=== PATIENT | female | born 1995 | race Caucasian/White ===

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

== ENCOUNTER 2017-05-19 08:00 | Inpatient (IN) | payer OTHER ==
[2017-05-19] MEDS: LACTATED RINGER'S 1000 ML IV (08:52)
[2017-05-19] MEDS: PRENATAL VITAMINS CHEWABLE TABLET PO (09:00)
[2017-05-19 09:20] LABS: HEMATOCRIT 35.5 % (36.0-47.0); HEMOGLOBIN 11.8 g/dl (12.0-16.0); MEAN CORPUSCULAR HEMOGLOBIN 29.4 pg (27.0-33.0); MEAN CORPUSCULAR HGB CONC 33.2 g/dl (32.0-36.5); MEAN CORPUSCULAR VOLUME 88.5 fl (80.0-96.0); PLATELET COUNT, AUTOMATED 308 10^3/uL (150-450); RED BLOOD COUNT 4.01 10^6/uL (4.00-5.40); RED CELL DISTRIBUTION WIDTH 11.7 % (11.5-14.5); WHITE BLOOD COUNT 8.7 10^3/uL (4.0-10.0)
[2017-05-19] MEDS: LR 1,000 ML IV ×2 (10:50→19:23)
[2017-05-19] MEDS: BICITRA 30ML SOLN UDC PO (10:55)
[2017-05-19] MEDS ORDERED: fentaNYL 100 MCG/2 ML INJECTION (J3010) As Ordered (11:05)
[2017-05-19] MEDS ORDERED: ONDANSETRON 4MG/2ML VIAL (J2405) As Ordered (11:06)
[2017-05-19] MEDS ORDERED: dexameTHASONE 4 MG/ML 1ML VIAL (J1100) As Ordered (11:06)
[2017-05-19] MEDS ORDERED: OXYTOCIN INJ 10 UNITS/ML VIAL (J2590) As Ordered (11:06)
[2017-05-19] MEDS ORDERED: NALOXONE INJ 0.4 MG/1 ML VIAL (J2310) IV ×2 (11:30)
[2017-05-19] MEDS ORDERED: ONDANSETRON 4MG/2ML VIAL (J2405) IV ×3 (11:30→13:00)
[2017-05-19] MEDS ORDERED: NALBUPHINE HCL 10 MG/ML AMP (J2300) IV (11:30)
[2017-05-19] MEDS ORDERED: KETOROLAC 60 MG/2 ML VIAL (J1885) As Ordered (12:10)
[2017-05-19] MEDS ORDERED: LR 1,000 ML IV (12:34)
[2017-05-19] MEDS ORDERED: PROMETHAZINE 25 MG TAB PO (12:45)
[2017-05-19] MEDS ORDERED: DOCUSATE SODIUM 100 MG CAP PO (12:45)
[2017-05-19] MEDS ORDERED: PERCOCET 5MG/325MG TAB PO ×2 (12:45→13:00)
[2017-05-19] MEDS ORDERED: MOM 30ML SUSPENSION UDC PO (12:45)
[2017-05-19] MEDS ORDERED: METHYLERGONOVINE MALEATE 0.2 MG TAB PO (12:45)
[2017-05-19] MEDS ORDERED: fentaNYL 100 MCG/2 ML INJECTION (J3010) IV (13:00)
[2017-05-19] MEDS ORDERED: METOCLOPRAMIDE INJ 10MG/2ML VIAL (J2765) IV (13:00)
[2017-05-19] MEDS ORDERED: MEPERIDINE INJ 25 MG/ML VIAL (J2175) IV (13:00)
[2017-05-19] MEDS: KETOROLAC 30 MG/ML VIAL (J1885) IV (18:05)
[2017-05-19] MEDS: RHOGAM 300 MCG (1500 IU) INJ (J2790) IM (19:23)
[2017-05-19] MEDS: MEASLES,MUMPS,RUBELLA VACCINE INJ (MMR-II) (90707) SC (19:24)
[2017-05-19] MEDS: METOCLOPRAMIDE INJ 10MG/2ML VIAL (J2765) IV (20:29)
[2017-05-20] MEDS: KETOROLAC 30 MG/ML VIAL (J1885) IV ×2 (01:00→06:01)
[2017-05-20 07:33] LABS: MEAN CORPUSCULAR HGB CONC 33.3 g/dl (32.0-36.5); MEAN CORPUSCULAR VOLUME 90.1 fl (80.0-96.0); PLATELET COUNT, AUTOMATED 247 10^3/uL (150-450); RED BLOOD COUNT 3.33 10^6/uL (4.00-5.40); RED CELL DISTRIBUTION WIDTH 11.6 % (11.5-14.5); WHITE BLOOD COUNT 13.4 10^3/uL (4.0-10.0)
[2017-05-20] MEDS: PRENATAL VITAMINS CHEWABLE TABLET PO (09:51)
[2017-05-20] MEDS: IBUPROFEN 800 MG TAB PO ×2 (13:41→21:19)
[2017-05-20] MEDS: PERCOCET 5MG/325MG TAB PO (13:41)
[2017-05-21] MEDS: PERCOCET 5MG/325MG TAB PO (00:10)
[2017-05-21] MEDS: IBUPROFEN 800 MG TAB PO (05:27)
[2017-05-21] MEDS: PRENATAL VITAMINS CHEWABLE TABLET PO (08:38)
== END 2017-05-21 11:30 | disposition home or self-care (01) | DRG 766 ==
LOC: M LDI 08:00 → M OBS 14:30
PROVIDERS: Student in an Organized Health Care Education/Training Program
PROC: 10D00Z1 Extraction of Products of Conception, Low, Open Approach (ICD-10-PCS; principal; 2017-05-19 10:30)
DX: O82 Encounter for cesarean delivery without indication (principal); Z37.0 Single live birth; Z3A.39 39 weeks gestation of pregnancy

== ENCOUNTER 2017-07-15 18:59 | Emergency (ER) | payer OTHER ==
[2017-07-15] MEDS: predniSONE 20 MG TAB PO (20:00)
== END 2017-07-15 20:11 | disposition home or self-care (01) ==
LOC: M ED 18:59
DX: L23.2 Allergic contact dermatitis due to cosmetics (principal); Z91.018 Allergy to other foods
CPT/HCPCS: 99283

== ENCOUNTER → 2017-12-17 | Outpatient (REF) | payer OTHER ==
[2017-12-17 19:05] LABS: BASO # 0.1 10^3/uL (0.0-0.2); BASO % 0.9 % (0.0-1.0); EOS # 0.8 10^3/uL (0.0-0.50); HEMATOCRIT 43.2 % (36.0-47.0); HEMOGLOBIN 14.5 g/dl (12.0-15.5); IMMATURE GRANULOCYTE % 0.1 % (0-3.0); LYMPH % 29.3 % (24.0-44.0); MEAN CORPUSCULAR HEMOGLOBIN 29.5 pg (27.0-33.0); MEAN CORPUSCULAR HGB CONC 33.6 g/dl (32.0-36.5); MEAN CORPUSCULAR VOLUME 87.8 fl (80.0-96.0); MONO # 0.4 10^3/uL (0.0-0.8); MONO % 5.2 % (0.0-5.0); NEUTROPHILS # 3.6 10^3/uL (1.8-7.7); NEUTROPHILS % 52.5 % (36.0-66.0); PLATELET COUNT, AUTOMATED 382 10^3/uL (150-450); RED BLOOD COUNT 4.92 10^6/uL (4.00-5.40); RED CELL DISTRIBUTION WIDTH 11.7 % (11.5-14.5); WHITE BLOOD COUNT 6.9 10^3/uL (4.0-10.0)
[2017-12-17 19:34] LABS: IMMUNOGLOBULIN E 42.9 IU/ML (<100)
[2017-12-21 01:40] LABS: D001-IgE D pteronyssinus 0.56 kU/L (Class II); E001-IgE Cat Epith/Dander < 0.10 kU/L (Class 0); E005-IgE Dog Dander < 0.10 kU/L (Class 0); G002-IgE Bermuda Grass < 0.10 kU/L (Class 0); G008-IgE Kentucky Bluegrass < 0.10 kU/L (Class 0); M001-IgE Penicillium chrysogen < 0.10 kU/L (Class 0); M002 IgE Cladosporium herbaru < 0.10 kU/L (Class 0); M003 IgE Aspergillus fumigatu < 0.10 kU/L (Class 0); M006-IgE Alternaria alternata 0.11 kU/L (Class 0/I); T001-IgE Maple/Box Elder < 0.10 kU/L (Class 0); T003-IgE Common Silver Birch < 0.10 kU/L (Class 0); T006-IgE Cedar, Mountain < 0.10 kU/L (Class 0); T007-IgE Oak, White < 0.10 kU/L (Class 0); T008-IgE Elm, American < 0.10 kU/L (Class 0); T015-IgE Ash, White < 0.10 kU/L (Class 0); T041-IgE Hickory, White < 0.10 kU/L (Class 0); T070-IgE White Mulberry < 0.10 kU/L (Class 0); W001-IgE Ragweed, Short < 0.10 kU/L (Class 0); W014-IgE Pigweed, Rough < 0.10 kU/L (Class 0); W018-IgE Sheep Sorrel 0.12 kU/L (Class 0/I)
== END ==
LOC: M LAB REF 17:24
DX: J45.41 Moderate persistent asthma with (acute) exacerbation (principal)
CPT/HCPCS: 82785

== ENCOUNTER 2018-03-03 16:11 | Emergency (ER) | payer OTHER ==
[~2018-03-03] VITALS: Ht 147.3 cm; Wt 41.8 kg
[2018-03-03 16:11] VITALS: BP 138/82
[~2018-03-03 16:11] MED LIST changes: +ADV100INH INH; +COLA100C5 PO; +IBUP-1114 PO; +OXYC1TAB23 PO; +PRENTAB16 PO; +PRENTAB9 PO
[2018-03-03] MEDS ORDERED: SING10TA32 PO (16:21)
[2018-03-03] MEDS ORDERED: MUCI600T37 PO (17:24)
[2018-03-03] MEDS ORDERED: FLON1SPR NARES (17:24)
[2018-03-03] MEDS ORDERED: SUDA30TA8 PO (17:24)
== END 2018-03-03 17:34 | disposition home or self-care (01) ==
LOC: M ED 16:11
DX: H65.03 Acute serous otitis media, bilateral (principal)